=== PATIENT | female | born 1935 | race Caucasian/White ===

== ENCOUNTER 2017-05-11 18:08 | Emergency (ER) | payer OTHER, BC ==
[2017-05-11 18:20] VITALS: RESP 16
[2017-05-11 18:40] LABS: % IMMATURE GRANULYOCYTES 0.3 % (0.0-1.1); ABSOLUTE IMMATURE GRANULOCYTES 0.02 10^3/uL (0.00-0.10); ADD DIFF? NO; ADD MORPH? NO; ADD SCAN? NO; ATYPICAL LYMPHOCYTE FLAG 0 (0-99); FRAGMENT RBC FLAG 0 (0-99); HEMATOCRIT 41.5 % (38.0-47.0); HEMOGLOBIN 14.2 g/dL (12.6-16.3); LEFT SHIFT FLG 0 (0-99); LIPEMIA HEMOLYSIS FLAG 90 (0-99); MEAN CELL HEMOGLOBIN 32.3 pg (27.9-34.1); MEAN CELL HEMOGLOBIN CONCENTR. 34.2 g/dL (32.4-36.7); MEAN CELL VOLUME 94.3 fL (81.5-99.8); MEAN PLATELET VOLUME 8.2 fL (8.7-11.7); PLATELET CLUMPS FLAG 0 (0-99); PLATELET COUNT 256 10^3/uL (150-400); RED CELL DISTRIBUTION WIDTH 12.4 % (11.5-15.2)
--- NOTE | 2017-05-11 18:46 | EDPHY ---
H & P Stated Complaint: Upper body 'shakes' and cognitive chnages. Time Seen by Provider: 05/11/17 18:29 HPI/ROS: CHIEF COMPLAINT: Intermittent tremor HISTORY OF PRESENT ILLNESS: The patient presents to the ED with a 2 week history of an intermittent tremor. The patient reportedly has been receiving Ativan as needed for this condition. The patient denies any focal numbness, weakness, headache, fall, trauma, fever, vomiting, cough or acute pain. She does have a history of chronic neuropathy. The patient states that she has had this evaluated by her primary care provider without an obvious diagnosis. REVIEW OF SYSTEMS: A comprehensive 10 point review of systems is otherwise negative aside from elements mentioned in the history of present illness. Source: Patient, EMS - Personal History Current Tetanus Diphtheria and Acellular Pertussis (TDAP): Yes - Medical/Surgical History Hx Asthma: No Hx Chronic Respiratory Disease: No Hx Diabetes: Yes Hx Cardiac Disease: No Hx Renal Disease: No Hx Cirrhosis: No Hx Alcoholism: No Hx HIV/AIDS: No Hx Splenectomy or Spleen Trauma: No Other PMH: Type 2 DM. - Social History Smoking Status: Never smoked - Physical Exam Exam: General Appearance: Alert, elderly female, slightly anxious Eyes: Pupils equal and round no pallor or injection ENT, Mouth: Mucous membranes moist Respiratory: There are no retractions, lungs are clear to auscultation Cardiovascular: Regular rate and rhythm Gastrointestinal: Abdomen is soft and nontender, no masses, bowel sounds normal Neurological: A&O, normal motor function, normal sensory exam, normal cranial nerves, intermittent generalized tremor noted Skin: Warm and dry, no rashes Musculoskeletal: Neck is supple nontender Extremities: symmetrical, full range of motion Constitutional: Initial Vital Signs Temperature (C) 37.2 C 05/11/17 18:17 Heart Rate 66 05/11/17 18:17 Respiratory Rate 16 05/11/17 18:17 Blood Pressure 216/94 H 05/11/17 18:17 O2 Sat (%) 96 05/11/17 18:17 O2 Delivery Mode Room Air Allergies/Adverse Reactions: No Known Allergies Allergy (Unverified 05/11/17 18:20) Home Medications: Medication Instructions Recorded Lantus 100 UNITS/ML (*) 05/11/17 Medical Decision Making - Diagnostics Imaging Results: CT head without contrast: Negative for intracranial hemorrhage, obvious stroke or other abnormality. Age related atrophy present. Images reviewed by myself and discussed with radiologist Dr. Lee. ED Course/Re-evaluation: The patient presents to the ED with an intermittent tremor for the past several weeks. The patient has no fever in the emergency department. The patient's vital signs are stable. I have observed episodic tremor which is brief and self- limited involving primarily her right and left arms. The patient has no other deficits noted on her neurologic examination. The patient's CT head demonstrates no evidence of a acute abnormality such is intracranial hemorrhage or obvious subacute stroke. The patient's laboratory studies and urinalysis are normal. I re-evaluated the patient several times. At this point time the etiology of her intermittent tremor is uncertain however I doubt it represents bacteremia or significant neurologic emergency. I do feel the patient can explore this as an outpatient with Neurology and her primary care physician. Differential Diagnosis: Differential diagnosis considered includes metabolic abnormality, urinary tract infection, dehydration, anxiety, intracranial hemorrhage, stroke, movement disorder, medication side effect - Data Points Laboratory Results: Laboratory Results 05/11/17 18:35 05/11/17 18:35 05/11/17 05/11/17 05/11/17 19:05 18:35 18:35 WBC 7.46 10^3/uL 10^3/uL (3.80-9.50) RBC 4.40 10^6/uL 10^6/uL (4.18-5.33) Hgb 14.2 g/dL g/dL (12.6-16.3) Hct 41.5 % % (38.0-47.0) MCV 94.3 fL fL (81.5-99.8) MCH 32.3 pg pg (27.9-34.1) MCHC 34.2 g/dL g/dL (32.4-36.7) RDW 12.4 % % (11.5-15.2) Plt Count 256 10^3/uL 10^3/uL (150-400) MPV 8.2 fL L fL (8.7-11.7) Neut % (Auto) 55.2 % % (39.3-74.2) Lymph % (Auto) 35.9 % % (15.0-45.0) [place] % (Auto) 7.2 % % (4.5-13.0) Eos % (Auto) 0.9 % % (0.6-7.6) Baso % (Auto) 0.5 % % (0.3-1.7) Nucleat RBC Rel Count 0.0 % % (0.0-0.2) Absolute Neuts (auto) 4.11 10^3/uL 10^3/uL (1.70-6.50) Absolute Lymphs (auto) 2.68 10^3/uL 10^3/uL (1.00-3.00) Absolute Monos (auto) 0.54 10^3/uL 10^3/uL (0.30-0.80) Absolute Eos (auto) 0.07 10^3/uL 10^3/uL (0.03-0.40) Absolute Basos (auto) 0.04 10^3/uL 10^3/uL (0.02-0.10) Absolute Nucleated RBC 0.00 10^3/uL 10^3/uL (0-0.01) Immature Gran % 0.3 % % (0.0-1.1) Immature Gran # 0.02 10^3/uL 10^3/uL (0.00-0.10) Sodium 135 mEq/L mEq/L (134-144) Potassium 4.7 mEq/L mEq/L (3.5-5.2) Chloride 101 mEq/L mEq/L (97-110) Carbon Dioxide 22 mEq/l mEq/l (22-31) Anion Gap 12 mEq/L mEq/L (8-16) BUN 17 mg/dL mg/dL (7-23) Creatinine 0.7 mg/dL mg/dL (0.6-1.0) Estimated GFR > 60 Glucose 117 mg/dL H mg/dL (70-100) Calcium 9.2 mg/dL mg/dL (8.5-10.4) Urine Color YELLOW Urine Appearance CLEAR Urine pH 7.0 (5.0-7.5) Ur Specific [place] 1.008 (1.002-1.030) Urine Protein NEGATIVE (NEGATIVE) Urine Ketones NEGATIVE (NEGATIVE) Urine Blood NEGATIVE (NEGATIVE) Urine Nitrate NEGATIVE (NEGATIVE) Urine Bilirubin NEGATIVE (NEGATIVE) Urine Urobilinogen NEGATIVE EU EU (0.2-1.0) Ur Leukocyte Esterase NEGATIVE (NEGATIVE) Urine RBC 1-3 /hpf /hpf (0-3) Urine WBC 1-3 /hpf /hpf (0-3) Ur Epithelial Cells TRACE /lpf /lpf (NONE-1+) Urine Bacteria 1+ /hpf H /hpf (NONE SEEN) Urine Glucose NEGATIVE (NEGATIVE) Departure - Departure Disposition: Home, Routine, Self-Care Clinical Impression: Tremor Condition: Good Instructions: Tremors (ED) Additional Instructions: 1. Please follow-up with your primary care provider as scheduled. If your tremor persist I do recommend following up with a neurologist you have been referred to for further evaluation. 2. Please return to the ED for fever, severe pain, markedly worsening symptoms or other concerns. Referrals: Rivera Nieves MD [Medical Doctor] - As per Instructions
[2017-05-11 18:51] LABS: ANION GAP 12 mEq/L (8-16); CALCIUM 9.2 mg/dL (8.5-10.4); CARBON DIOXIDE 22 mEq/l (22-31); CHLORIDE 101 mEq/L (97-110); CREATININE 0.7 mg/dL (0.6-1.0); GLOMERULAR FILTRATION RATE > 60; GLUCOSE 117 mg/dL (70-100); POTASSIUM 4.7 mEq/L (3.5-5.2); SODIUM 135 mEq/L (134-144)
[2017-05-11 19:12] LABS: COLOR YELLOW; LEUKOCYTE ESTERASE,URINE NEGATIVE (NEGATIVE); NITRITE,URINE NEGATIVE (NEGATIVE)
[2017-05-11 19:14] VITALS: PULSE 67
[2017-05-11 19:16] LABS: BACTERIA 1+ /hpf (NONE SEEN)
[2017-05-11 21:01] VITALS: BP 178/89; TEMP 98.4; O2SAT 95
== END 2017-05-11 21:22 | disposition home or self-care (01) ==
LOC: EDUNIT#
DX: R25.1 Tremor, unspecified (principal); E11.9 Type 2 diabetes mellitus without complications; Z79.4 Long term (current) use of insulin

== ENCOUNTER 2018-05-14 11:37 | Emergency (ER) | payer OTHER, BC ==
[2018-05-14] MEDS ORDERED: NS 500 ML IV ONE (13:21)
--- NOTE | 2018-05-14 13:26 | EDPHY ---
H & P Time Seen by Provider: 05/14/18 12:59 HPI/ROS: HPI Low blood pressure. High blood sugar. 83-year-old female by ambulance from [facility]. prison staff reported that the patient had a high blood sugar in the 230s, low blood pressure and appeared clammy earlier this morning. Patient is present with her daughter who is power of trade mark attorney. The patient currently denies any complaints. The long term staff did not provide a blood pressure reading to us. The patient takes lisinopril. ROS: Constitutional: No fever, no chills. As above. Eyes: No discharge. No changes in vision. ENT: No sore throat. No nasal congestion or rhinorrhea. Respiratory: No cough. No shortness of breath. Cardiac: No chest pain, no palpitations. Gastrointestinal: No abdominal pain, no vomiting, no diarrhea. Genitourinary: No hematuria. No dysuria or increased frequency with urination. Musculoskeletal: No back pain. No neck pain. No myalgias or arthralgias. Skin: No rashes. Neurological: No headache. No focal weakness or altered sensation. Past medical history: Type 2 diabetes, hypertension, dementia, chronic fatigue and weakness, left bundle branch block, ovarian cancer, coronary artery disease , GERD, depression, panniculitis, hyponatremia, urinary retention. Social history: Nonsmoker. Here with granddaughter. No alcohol. As above. Physical Exam: General Appearance: Alert, pleasant 83-year-old female, no distress. This patient is responding to questions appropriately and in full sentences. This patient appears well-hydrated and well-nourished. Eyes: Pupils equal and round no pallor or injection. No lid edema, erythema or injection. Respiratory: There are no retractions, lungs are clear to auscultation with good air movement bilaterally. Cardiovascular: Regular rate and rhythm. No murmur appreciated. Gastrointestinal: Abdomen is soft and nontender, no masses, bowel sounds normal. No focal tenderness at McBurney's point. No Kate sign. Neurological: Motor sensory function is grossly intact. Cranial nerves are normal. Skin: Warm and dry, no rashes. Musculoskeletal: Neck is supple and nontender. Extremities are symmetrical. All joints range without pain or impingement. Psychiatric: No agitation. No depression. Database: EKG: EKG time is 2:11 p.m.; EKG shows a sinus rhythm with left bundle branch block, ventricular rate of 59. 1st degree AV block noted. Appropriate discordance noted. The QT intervals are within normal limits. There are no ST-T wave changes indicative of ischemic or injury pattern. No evidence of right heart strain. Interpreted by me. Imaging: Chest x-ray AP portable; the cardiac mediastinal silhouette is unremarkable. Age-related changes noted. No evidence of infiltrate or pneumothorax. No acute cardiopulmonary disease process noted. Interpreted by me. Procedures: Emergency department course: Triage vital signs reviewed. On my evaluation blood pressure 111/55. range rider shows a sinus rhythm with ventricular rate of 58. Pulse oximetry 100%. The patient will be given 500 cc of IV normal saline over the next hour. EKG, blood work and urine ordered. The patient's blood work is significant for leukocytosis. I considered infection but she has been afebrile. Her urinalysis is unremarkable. Chest x- ray shows no evidence of pneumonia. Her cardiac workup has also been unremarkable. She is not significantly hyperglycemic or acidotic. At this point I feel she can be discharged back to her long term with follow up with her primary care physician. I discussed results of her workup and plan for discharge with the patient and her granddaughter. They are in agreement. All of their questions were answered. Return to emergency department precautions were reviewed with the 2 of them. The patient was discharged in good condition. Differential Diagnosis: The differential diagnosis on this patient includes but is not limited to hyperglycemia, hyponatremia, dehydration, antihypertensive medication reaction. This represents a partial list of diagnoses considered. These considerations are based on history, physical exam, past history, reassessment and diagnostic testing. Smoking Status: Never smoked Constitutional: Initial Vital Signs Temperature (C) 36.5 C 05/14/18 12:14 Heart Rate 57 L 05/14/18 12:14 Respiratory Rate 16 05/14/18 12:14 Blood Pressure 101/55 L 05/14/18 12:14 O2 Sat (%) 100 05/14/18 12:14 O2 Delivery Mode Nasal Cannula O2 (L/minute) 2 Allergies/Adverse Reactions: No Known Allergies Allergy (Unverified 05/11/17 18:20) Home Medications: Medication Instructions Recorded Lantus 100 UNITS/ML (*) 05/11/17 Aricept 05/14/18 Cyclobenzaprine 05/14/18 Gabapentin 05/14/18 Lisinopril 05/14/18 Lorazepam 05/14/18 Miralax 17 gm (*) 05/14/18 Multivitamins 05/14/18 [place] 5/325 (*) 05/14/18 Oxycontin 05/14/18 Tylenol 05/14/18 Wellbutrin Sr 05/14/18 traZODone 05/14/18 Medical Decision Making - Diagnostics Imaging Results: Imaging Impressions Chest X-Ray 05/14/18 14:41 Impression: No acute abnormality. - Data Points Laboratory Results: Laboratory Results 05/14/18 13:50 05/14/18 13:50 05/14/18 05/14/18 05/14/18 15:10 13:55 13:50 WBC RBC Hgb Hct MCV MCH MCHC RDW Plt Count MPV Neut % (Auto) Lymph % (Auto) [place] % (Auto) Eos % (Auto) Baso % (Auto) Nucleat RBC Rel Count Absolute Neuts (auto) Absolute Lymphs (auto) Absolute Monos (auto) Absolute Eos (auto) Absolute Basos (auto) Absolute Nucleated RBC Immature Gran % Immature Gran # Sodium 132 mEq/L L mEq/L (135-145) Potassium 4.5 mEq/L mEq/L (3.3-5.0) Chloride 101 mEq/L mEq/L (97-110) Carbon Dioxide 20 mEq/l L mEq/l (22-31) Anion Gap 11 mEq/L mEq/L (8-16) BUN 18 mg/dL mg/dL (7-23) Creatinine 1.0 mg/dL mg/dL (0.6-1.0) Estimated GFR 53 Glucose 134 mg/dL H mg/dL (70-100) Calcium 8.5 mg/dL mg/dL (8.5-10.4) POC Troponin I 0.02 ng/mL ng/mL (0.00-0.08) Urine Color YELLOW Urine Appearance CLEAR Urine pH 7.0 (5.0-7.5) Ur Specific [place] 1.010 (1.002-1.030) Urine Protein NEGATIVE (NEGATIVE) Urine Ketones NEGATIVE (NEGATIVE) Urine Blood NEGATIVE (NEGATIVE) Urine Nitrate NEGATIVE (NEGATIVE) Urine Bilirubin NEGATIVE (NEGATIVE) Urine Urobilinogen 2.0 EU H EU (0.2-1.0) Ur Leukocyte Esterase NEGATIVE (NEGATIVE) Urine RBC NONE SEEN /hpf /hpf (0-3) Urine WBC 1-3 /hpf /hpf (0-3) Ur Epithelial Cells NONE SEEN /lpf /lpf (NONE-1+) Urine Glucose NEGATIVE (NEGATIVE) 05/14/18 13:50 WBC 20.16 10^3/uL H 10^3/uL (3.80-9.50) RBC 4.21 10^6/uL 10^6/uL (4.18-5.33) Hgb 13.9 g/dL g/dL (12.6-16.3) Hct 40.5 % % (38.0-47.0) MCV 96.2 fL fL (81.5-99.8) MCH 33.0 pg pg (27.9-34.1) MCHC 34.3 g/dL g/dL (32.4-36.7) RDW 12.1 % % (11.5-15.2) Plt Count 220 10^3/uL 10^3/uL (150-400) MPV 7.6 fL L fL (8.7-11.7) Neut % (Auto) 89.5 % H % (39.3-74.2) Lymph % (Auto) 5.2 % L % (15.0-45.0) [place] % (Auto) 4.5 % % (4.5-13.0) Eos % (Auto) 0.1 % L % (0.6-7.6) Baso % (Auto) 0.1 % L % (0.3-1.7) Nucleat RBC Rel Count 0.0 % % (0.0-0.2) Absolute Neuts (auto) 18.02 10^3/uL H 10^3/uL (1.70-6.50) Absolute Lymphs (auto) 1.05 10^3/uL 10^3/uL (1.00-3.00) Absolute Monos (auto) 0.91 10^3/uL H 10^3/uL (0.30-0.80) Absolute Eos (auto) 0.03 10^3/uL 10^3/uL (0.03-0.40) Absolute Basos (auto) 0.03 10^3/uL 10^3/uL (0.02-0.10) Absolute Nucleated RBC 0.00 10^3/uL 10^3/uL (0-0.01) Immature Gran % 0.6 % % (0.0-1.1) Immature Gran # 0.12 10^3/uL H 10^3/uL (0.00-0.10) Sodium Potassium Chloride Carbon Dioxide Anion Gap BUN Creatinine Estimated GFR Glucose Calcium POC Troponin I Urine Color Urine Appearance Urine pH Ur Specific [place] Urine Protein Urine Ketones Urine Blood Urine Nitrate Urine Bilirubin Urine Urobilinogen Ur Leukocyte Esterase Urine RBC Urine WBC Ur Epithelial Cells Urine Glucose Medications Given: Discontinued Medications Sodium Chloride (Ns) 500 mls @ 0 mls/hr IV EDNOW ONE; Wide Open PRN Reason: Protocol Stop: 05/14/18 13:22 Last Admin: 05/14/18 14:12 Dose: 500 mls Point of Care Test Results: Chemistry 05/14/18 13:55 POC Troponin I 0.02 ng/mL ng/mL (0.00-0.08) Departure - Departure Disposition: Home, Routine, Self-Care Clinical Impression: Hyperglycemia due to type 1 diabetes mellitus, Dehydration, Leukocytosis Condition: Good Instructions: Dehydration (ED) Additional Instructions: Read and follow provided instructions. Follow-up with your primary care physician in 1-2 days for re-evaluation. Take your medication as prescribed. Keep well hydrated. Drink plenty of fluids. Return to the emergency department for worsening symptoms or other serious concerns. Referrals: Patient,NotPresent [Unknown] - As per Instructions
[2018-05-14 14:08] LABS: PLATELET COUNT 220 10^3/uL (150-400)
--- NOTE | 2018-05-14 14:13 | CPEKG ---
Heart Rate: 59 RR Interval: 1017 P-R Interval: 264 QRSD Interval: 140 QT Interval: 504 QTC Interval: 500 P Mazama: 19 QRS Mazama: -47 T Wave Maz[place]: 131 EKG Severity - ABNORMAL ECG - EKG Impression: SINUS RHYTHM EKG Impression: FIRST DEGREE AV BLOCK EKG Impression: LEFT BUNDLE BRANCH BLOCK EKG Impression: INFERIOR Q WAVES, POSSIBLY DUE TO LBBB Electronically Signed By: Calin Escobar 14-May-2018 17:43:22
[2018-05-14 15:53] VITALS: BP 127/67
== END 2018-05-14 16:45 | disposition home or self-care (01) ==
LOC: EDUNIT#
DX: E11.65 Type 2 diabetes mellitus with hyperglycemia (principal); D72.829 Elevated white blood cell count, unspecified; E86.0 Dehydration; E86.9 Volume depletion, unspecified; I10 Essential (primary) hypertension; I25.10 Atherosclerotic heart disease of native coronary artery without angina pectoris; Z79.4 Long term (current) use of insulin; Z85.43 Personal history of malignant neoplasm of ovary
CPT/HCPCS: 84484-PO

== ENCOUNTER → 2019-04-23 | Outpatient (CLI) | payer OTHER, MEDICAID, BC | LOC: FIMAGING 07:28 ==